=== PATIENT | female | born 1970 | race Caucasian/White ===

== ENCOUNTER 2016-08-30 13:30 | Emergency (ER) | payer OTHER ==
[2016-08-30 13:50] VITALS: BP 108/78; PULSE 88; RESP 18; TEMP 98; O2SAT 96
--- NOTE | 2016-08-30 15:09 | UCPHY ---
[id number] 4d 08/30/16 13:51 HPI/ROS: CHIEF COMPLAINT: Sore throat, cough HISTORY OF PRESENT ILLNESS: 46-year-old female presents to Urgent Care complaining of sore throat cough that began over the last 1 week. She is concerned that she may have strep throat. She denies dysphagia. She denies chest pain or difficulty breathing. She has had general aches. No fevers or chills. No nasal congestion, rhinorrhea. No recent travel. No neck pain. No headache. Daughter also has sore throat. REVIEW OF SYSTEMS: Constitutional: No fever, no chills. Eyes: No double or blurry vision. ENT: sore throat. Respiratory: cough, no shortness of breath. Cardiac: No chest pain. Gastrointestinal: No abdominal pain, vomiting or diarrhea. Genitourinary: No dysuria. Musculoskeletal: No neck or back pain. Skin: No rashes. Neurological: No headache. (Genevieve Saavedra) Past Medical/Surgical History: Chronic smoker (Genevieve Saavedra) Social History: and lives in [place] (Genevieve Saavedra) Physical Exam: General Appearance: Alert, no distress. Afebrile. Nontoxic appearing. Eyes: Pupils equal and round. Extraocular motions are all intact. ENT: Mouth: Mucous membranes moist. Mild posterior pharyngeal injection with small exudate. No uvular swelling. Small tonsils. No trismus. No muffled voice. No cervical lymphadenopathy. Respiratory: No wheezing, rhonchi, or rales, lungs are clear to auscultation. Cardiovascular: Regular rate and rhythm. Gastrointestinal: Abdomen is soft and nontender, no masses, no rebound or guarding, bowel sounds normal. Neurological: Alert and oriented x 3, cranial nerves II through XII grossly intact Skin: Warm and dry, no rashes. Musculoskeletal: Nontender to palpate along the cervical, thoracic or lumbar spine. Neck is supple. Extremities: Full range of motion and no peripheral edema. Psychiatric: Patient is oriented X 3, there is no agitation. (Genevieve Saavedra) Constitutional: Initial Vital Signs Temperature (C) 36.6 C 08/30/16 13:47 Heart Rate 88 08/30/16 13:47 Respiratory Rate 18 08/30/16 13:47 Blood Pressure 108/78 08/30/16 13:47 O2 Sat (%) 96 08/30/16 13:47 O2 Delivery Mode Room Air Allergies/Adverse Reactions: No Known Allergies Allergy (Unverified 11/08/10 15:43) Home Medications: Medication Instructions Recorded LEXAPRO 11/08/10 Phenergan 11/08/10 SUBOXONE 2 MG-0.5 MG TABLET 12/14/15 Medical Decision Making ED Course/Re-evaluation: 46-year-old female presents with sore throat, cough and general malaise. Rapid strep test was negative. I do not think this patient needs antibiotics. She will call for the results of her throat culture in 48 hours. She was instructed to return if she developed difficulty swallowing, fever, rash, shortness of breath, or if she felt worse in any way. She felt comfortable with this plan. (Genevieve Saavedra) Urgent Care PA supervision Physician documentation: The patient was evaluated and managed by the physician assistant corporate secretary. My co- signature indicates that I have reviewed this chart and I agree with the findings and plan of care as documented. I am the secondary supervising physician. (Carlos Guzmán) Differential Diagnosis: Including but not limited to viral syndrome, strep pharyngitis, mononucleosis, influenza, bronchitis, pneumonia (Genevieve Saavedra) Departure - Departure Disposition: Home, Routine, Self-Care Clinical Impression: Pharyngitis, Upper respiratory infection Condition: Good Instructions: Pharyngitis (ED), Upper Respiratory Infection (ED) Additional Instructions: Adult Pain & Fever Control: We recommend Acetaminophen (Tylenol) and Ibuprofen (Motrin,Advil) for pain and fever control. When fever is high or pain severe, both drugs can be used at the same time, but at different intervals. Please note the time differences. Your dose is: Acetaminophen 1000mg every 4 to 6 hours Ibuprofen 600mg every 8 hours with food Note: do not take Acetaminophen with Hydrocodone (Vicodin, Lortab) or Oycodone (Percocet). These medications also contain Acetaminophen. No more than 3000mg of Acetaminophen should be taken in 24 hours (for an adult). Referrals: SHMUEL ESPINAL [Primary Care Provider] - As per Instructions - PQRS PQRS Measurement: Not applicable (Genevieve Saavedra)
== END 2016-08-30 15:14 | disposition home or self-care (01) ==
LOC: CED 13:30
DX: J06.9 Acute upper respiratory infection, unspecified (principal); Z72.0 Tobacco use
CPT/HCPCS: 87880-PO; 99214-PO; G0463-PO